=== PATIENT | female | born 1965 | race Caucasian/White ===

== ENCOUNTER 2021-03-20 23:09 | Emergency (ER) | payer MEDICAID ==
[~2021-03-20] VITALS: Ht 165.1 cm; Wt 123.0 kg
[2021-03-21 01:00] VITALS: BP 150/70
== END 2021-03-21 01:03 | disposition home or self-care (01) ==
LOC: ER 23:09
DX: H92.01 Otalgia, right ear (principal); J45.909 Unspecified asthma, uncomplicated
CPT/HCPCS: 99282